=== PATIENT | male | born 1995 | race Caucasian/White ===

== ENCOUNTER 2017-09-14 20:00 | Emergency (ER) | payer SELFPAY ==
[~2017-09-14] VITALS: Ht 182.9 cm; Wt 65.9 kg
[2017-09-14 20:06] VITALS: BP 175/93; TEMP 98.4
[2017-09-14 20:44] LABS: INFLUENZA A NEGATIVE; INFLUENZA B NEGATIVE
[2017-09-14] MEDS ORDERED: TESSALON P100 MG/CAP PO (22:16)
[2017-09-14 22:40] VITALS: PULSE 89
== END 2017-09-14 22:42 | disposition home or self-care (01) ==
LOC: COL.ER 20:00
PROVIDERS: Physician Assistant
DX: B34.9 Viral infection, unspecified (principal); F17.210 Nicotine dependence, cigarettes, uncomplicated

== ENCOUNTER 2018-06-13 13:57 | Emergency (ER) | payer SELFPAY ==
[~2018-06-13] VITALS: Ht 182.9 cm; Wt 67.7 kg
[~2018-06-13 13:57] MED LIST: TESSALON P100 MG/CAP PO
[2018-06-13 14:00] VITALS: BP 116/69; TEMP 97.7
[2018-06-13 14:45] VITALS: PULSE 86
== END 2018-06-13 14:46 | disposition home or self-care (01) ==
LOC: COL.ER 13:57
DX: S60.222A Contusion of left hand, initial encounter (principal); F17.210 Nicotine dependence, cigarettes, uncomplicated; F12.90 Cannabis use, unspecified, uncomplicated; W29.4XXA Contact with nail gun, initial encounter; Y92.009 Unspecified place in unspecified non-institutional (private) residence as the place of occurrence of the external cause